=== PATIENT | female | born 1955 | race Caucasian/White ===

== ENCOUNTER → 2023-08-07 09:52 | Outpatient (CLI) | payer MEDICARE, OTHER, SELFPAY ==
[2023-08-07 10:41] LABS: Add Manual Diff / Slide Review NO; Basophils Absolute Auto 200 /uL (0-100); Basophils Percent Auto 4.3 % (0-2); Eosinophils Absolute Auto 600 /uL (0-450); Eosinophils Percent Auto 12.1 % (2-4); Hematocrit 31.5 % (36-46); Hemoglobin 10.3 g/dL (12.0-16.0); Lymphocytes Absolute Auto 1400 /uL (1100-4500); Lymphocytes Percent Auto 27.5 % (25-40); Mean Corpuscular HGB Conc 32.8 % (30-36); Mean Corpuscular Hemoglobin 29.1 PG (26-34); Mean Corpuscular Volume 88.8 fL (80-100); Monocytes Absolute Auto 800 /uL (0-900); Neutrophils Absolute Auto 2100 /uL (1500-7000); Neutrophils Percent Auto 41.1 % (50-75); Platelet Count 541 X10^3/uL (150-400); Red Blood Cell Count 3.55 X10^6/uL (4.0-5.2); Red Cell Distribution Width 15.9 % (11.6-14.8)
[2023-08-07 11:30] LABS: Alanine Aminotransferase 27 IU/L (<35); Albumin 3.9 g/dL (3.5-5.0); Albumin Globulin Ratio 1.2 (1.0-2.8); Alkaline Phosphatase 100 U/L (38-126); Aspartate Aminotransferase 34 IU/L (14-36); BUN Creatinine Ratio 20.2 (6-22); Bilirubin Total 0.5 mg/dL (0.2-1.3); Blood Urea Nitrogen 19 mg/dL (7-17); Calcium 9.3 mg/dL (8.4-10.2); Carbon Dioxide 27 mmol/L (22-32); Chloride 102 mmol/L (98-107); Estimated Glomerular Filt Rate > 60 mL/min (>60); Globulin 3.3 g/dL (1.7-4.1); Glucose 89 mg/dL (80-110); HEMOLYSIS < 15 (0-50); Potassium 4.8 mmol/L (3.4-5.1); Sodium 136 mmol/L (137-145); Total Protein 7.2 g/dL (6.3-8.2)
== END ==
PROVIDERS: Referring Provider Internal Medicine Hematology & Oncology; Visit Provider Internal Medicine Hematology & Oncology
DX: C34.91 Malignant neoplasm of unspecified part of right bronchus or lung (principal)
CPT/HCPCS: 36415; 80053; 85025

== ENCOUNTER → 2023-08-14 08:37 | Outpatient (CLI) | payer MEDICARE, OTHER, SELFPAY ==
[2023-08-14 17:57] LABS: Add Manual Diff / Slide Review NO; Basophils Absolute Auto 200 /uL (0-100); Basophils Percent Auto 2.8 % (0-2); Eosinophils Absolute Auto 900 /uL (0-450); Hematocrit 33.3 % (36-46); Lymphocytes Absolute Auto 1400 /uL (1100-4500); Lymphocytes Percent Auto 23.4 % (25-40); Mean Corpuscular Hemoglobin 29.3 PG (26-34); Mean Corpuscular Volume 88.8 fL (80-100); Monocytes Absolute Auto 900 /uL (0-900); Monocytes Percent Auto 14.9 % (3-14); Neutrophils Absolute Auto 2600 /uL (1500-7000); Neutrophils Percent Auto 43.9 % (50-75); Platelet Count 383 X10^3/uL (150-400); Red Blood Cell Count 3.75 X10^6/uL (4.0-5.2); Red Cell Distribution Width 16.9 % (11.6-14.8); White Blood Cell Count 5.9 X10^3/uL (4.5-11.0)
[2023-08-14 18:15] LABS: Alanine Aminotransferase 37 IU/L (<35); Albumin 4.3 g/dL (3.5-5.0); Albumin Globulin Ratio 1.1 (1.0-2.8); Alkaline Phosphatase 104 U/L (38-126); Aspartate Aminotransferase 46 IU/L (14-36); BUN Creatinine Ratio 19.8 (6-22); Bilirubin Total 0.5 mg/dL (0.2-1.3); Blood Urea Nitrogen 18 mg/dL (7-17); Calcium 9.5 mg/dL (8.4-10.2); Carbon Dioxide 27 mmol/L (22-32); Chloride 104 mmol/L (98-107); Estimated Glomerular Filt Rate > 60 mL/min (>60); Globulin 3.9 g/dL (1.7-4.1); Glucose 90 mg/dL (80-110); HEMOLYSIS 28 (0-50); Potassium 4.3 mmol/L (3.4-5.1); Sodium 137 mmol/L (137-145); Total Protein 8.2 g/dL (6.3-8.2)
== END ==
PROVIDERS: PCP Internal Medicine Hematology & Oncology; Referring Provider Internal Medicine Hematology & Oncology; Visit Provider Internal Medicine Hematology & Oncology
DX: C34.91 Malignant neoplasm of unspecified part of right bronchus or lung (principal)
CPT/HCPCS: 36415; 80053; 85025

== ENCOUNTER → 2023-11-12 14:12 | Outpatient (CLI) | payer MEDICARE, OTHER, SELFPAY ==
--- NOTE | 2023-11-12 14:14 | DI.CT.S_ITS ---
PROCEDURE: CT SOFT TISSUE NECK W CON INDICATIONS: F/U ON TREATMENT / BRONCHUS AND LUNG NEOPLASM TECHNIQUE: After the administration of intravenous contrast, 3.0 mm axial sections acquired from the sella to the aortic arch. Additional oblique axial 3.0 mm sections acquired through the pharynx. 3 mm thick coronal and sagittal reformats were generated. For radiation dose reduction, the following was used: automated exposure control. COMPARISON: Outside Facility, RG, CT SOFT TISSUE NECK WITH CONTRAST, 09/10/2023, 16:41. FINDINGS: Skull Base: The visualized intracranial contents, skull, and orbits are unremarkable in unstable small left parietal benign hemangioma. Visualized paranasal sinuses are clear. Pharynx and Larynx: The nasopharyngeal airway is patent and midline. Parapharyngeal soft tissues including palatine tonsils and base of the tongue are normal. Retropharyngeal space unremarkable. Normal appearance of the false and true vocal cords. Muscles and Fascial Planes: Fascial planes are well maintained. No abscess or mass lesion. Lymph Nodes: Continued decrease in a bilateral cervical lymph nodes size. Index left level 2A node now measures 1.2 x 0.7 cm, previously 1.5 x 1 point 0 cm utilizing similar projections Vasculature: Unremarkable. Submandibular and Parotid Glands: Normal in size and attenuation. Thyroid: Unremarkable. No enlarged or calcified nodules. Bones: No acute fracture. No osteolytic or blastic lesion is evident. Normal bone mineralization. Degenerative disc disease and arthropathy. Lung Apices: Mild biapical pulmonary emphysema IMPRESSION: Positive response to treatment. Continued decrease in size and number of cervical lymph nodes Approved by: Jason Freeman M.D. on 11/12/2023 at 17:47
--- NOTE | 2023-11-12 15:12 | DI.CT.S_ITS ---
PROCEDURE: CT CHEST ABD PEL W CON INDICATIONS: F/U ON TREATMENT / BRONCHUS AND LUNG NEOPLASM TECHNIQUE: After the administration of intravenous contrast, 5 mm thick sections acquired from the lung apices to the symphysis. 5 mm coronal and sagittal reformats were performed, with additional 7 mm MIP reformats through the lungs. For radiation dose reduction, the following was used: automated exposure control, adjustment of mA and/or kV according to patient size. COMPARISON: Outside Facility, RG, CT PET SKULL BASE TO MID THIGH, 09/10/2023, 16:05. Outside Facility, RG, CT CHEST/ABD/PEL W/CONTRAST, 09/10/2023, 16:32. FINDINGS: Image quality: Diagnostic Lungs and pleura: Scattered scarring and atelectasis. No new or enlarging pulmonary nodules. Small nodules, for example the left lung apex image 3/64, are unchanged. No pleural effusions. Mediastinum, heart, and esophagus: Soft tissue thickening and small calcifications again seen at the right hilum, likely representing post treatment changes, overall stable compared to 09/10/2023. Soft tissue thickening throughout the mediastinum without discrete measurable mass also again seen. Heart size is within normal limits. Chest wall and thyroid: Unremarkable. No significant lymphadenopathy in the axilla. Previously hypermetabolic lymph nodes are slightly less conspicuous. Liver: Unremarkable. No suspicious solid lesion Gallbladder and biliary system: Unremarkable, nondilated. Pancreas: No ductal dilation Spleen: Nonenlarged Adrenals: No discrete nodules Kidneys: Multifocal scarring. Scattered cysts. No solid renal mass or hydronephrosis Vessels and lymph nodes: The main portal vein is patent. Areas of calcified and noncalcified plaque again seen in the abdominal aorta, possibly with an ulceration in the infrarenal region. No pathologic lymph nodes by size criteria. Bowel and peritoneum: Moderate distention of the stomach without small bowel obstruction. Moderate fecal loading is also seen. No pathologic lymph nodes by size criteria. Body wall: Moderate right inguinal hernia is present. The previously hypermetabolic inguinal lymph nodes are less conspicuous. Pelvis: Bladder is unremarkable. Reproductive organs are unremarkable on limited CT evaluation Bones: There are degenerative changes. L4 vertebral augmentation. IMPRESSION: Post treatment changes of the right hilum, with soft tissue thickening and calcifications similar to prior. Small nodular regions of the lungs are also similar to prior in the short interval comparison from 09/10/2023. No active metastases identified in the abdomen/pelvis. Other findings as above. Dictated by: Justin Elliott M.D. on 11/12/2023 at 16:18 Approved by: Justin Elliott M.D. on 11/12/2023 at 16:31
== END ==
LOC: CT 14:12
PROVIDERS: PCP Internal Medicine Hematology & Oncology; Referring Provider Internal Medicine Hematology & Oncology; Visit Provider Internal Medicine Hematology & Oncology
DX: C34.01 Malignant neoplasm of right main bronchus; R91.8 Other nonspecific abnormal finding of lung field; R59.0 Localized enlarged lymph nodes; K40.90 Unilateral inguinal hernia, without obstruction or gangrene, not specified as recurrent
CPT/HCPCS: 70491; 71260; 74177; Q9967

== ENCOUNTER → 2024-01-14 10:31 | Outpatient (CLI) | payer MEDICARE, OTHER, SELFPAY ==
--- NOTE | 2024-01-14 10:35 | DI.CT.S_ITS ---
PROCEDURE: CT CHEST ABD PEL W CON INDICATIONS: MALIG NAN BRONCUS AND LUNG TECHNIQUE: After the administration of intravenous contrast, 5 mm thick sections acquired from the lung apices to the symphysis. 5 mm coronal and sagittal reformats were performed, with additional 7 mm MIP reformats through the lungs. For radiation dose reduction, the following was used: automated exposure control, adjustment of mA and/or kV according to patient size. COMPARISON: Outside Facility, CT, CT CHEST ABD PEL W CON, 09/10/2023, 16:32. Outside Facility, RG, CT PET SKULL BASE TO MID THIGH, 09/10/2023, 16:05. [facility], CT, CT CHEST ABD PEL W CON, 11/12/2023, 15:15. FINDINGS: Image quality: Excellent. CHEST: Lower Neck: No enlarged lymph nodes. Thyroid: No thyroid nodules which require sonographic follow up, per consensus guidelines. Axillae: No enlarged lymph nodes. Chest Wall: Unremarkable. Lungs and Pleura: No pneumothorax or pleural effusions. Stable small scar-like pulmonary nodule, posterior medial left upper lobe, previous image 64/3 and current image 82/3. Stable scar-like nodularity in the posterior left upper lobe, most recent previous image 80 of series 3 and current image 97 of series 3. No new or increasing pulmonary nodules noted. Heart: Heart size is normal. No pericardial effusion. Thoracic Vessels: The aorta and pulmonary arteries demonstrate normal size. Mediastinum and Lee Ann: Again noted is a partially calcified soft tissue lesion immediately subjacent to the right inferior pulmonary vein. It measures approximately 3.0 x 1.8 x 1.1 cm. Reference current coronal image 32 of series 4 and axial image 40 of series 2. On the most recent previous images it measured 3.3 x 1.6 x 0.9 cm. It appears to have slightly increased in size. Reference most recent previous coronal image 32 of series 4 and axial image 37 of series 2. Esophagus: No wall thickening. No hiatal hernia. ABDOMEN: Liver: No solid mass. Gallbladder: No radiopaque gallstones or wall thickening. Biliary ducts: No biliary dilation. Pancreas: No ductal dilation. Spleen: Size is within normal limits. Adrenal Glands: No adrenal nodules. Kidneys and Ureters: Multiple areas of left renal cortical volume loss consistent with remote insults. No renal mass. No hydronephrosis. Stomach and Bowel: Normal colonic caliber, without significant wall thickening. Peritoneum: No abnormal intraperitoneal fluid. No free air. Ventral Wall: No significant ventral hernia. Abdominal Nodes: No retroperitoneal or mesenteric adenopathy by size criteria. Vessels: Aorta and inferior vena cava are normal in size. PELVIS: Pelvic Organs: Unremarkable. Bladder: No bladder wall thickening, accounting for underdistention. Pelvic Nodes: No enlarged lymph nodes. Miscellaneous: Fat containing right inguinal hernia. No inguinal adenopathy. In Bones: No aggressive osseous abnormality. IMPRESSION: 1. The partially calcified lesion that is in close proximity to the left inferior pulmonary vein may potentially have minimally increased in size since the most recent previous study. 2. No other findings which may potentially represent progression of metastatic disease in the chest, abdomen, and pelvis. 3. Stable scar-like nodularity in the lungs. 4. Old treated L4 compression. Dictated by: Herman Davila M.D. on 01/14/2024 at 13:34 Approved by: Herman Davila M.D. on 01/14/2024 at 13:57
--- NOTE | 2024-01-14 10:35 | DI.CT.S_ITS ---
PROCEDURE: CT SOFT TISSUE NECK W CON INDICATIONS: MALIG NAN BRONCUS AND LUNG TECHNIQUE: After the administration of intravenous contrast, 3.0 mm axial sections acquired from the sella to the aortic arch. Additional oblique axial 3.0 mm sections acquired through the pharynx. 3 mm thick coronal and sagittal reformats were generated. For radiation dose reduction, the following was used: automated exposure control. COMPARISON: [facility], CT, CT CHEST ABD PEL W CON, 01/14/2024, 11:54. Outside Facility, RG, CT PET SKULL BASE TO MID THIGH, 09/10/2023, 16:05. Outside Facility, CT, CT SOFT TISSUE NECK W CON, 09/10/2023, 16:41. Outside Facility, RG, CT SOFT TISSUE NECK WITH CONTRAST, 09/10/2023, 16:41. [facility], CT, CT SOFT TISSUE NECK W CON, 11/12/2023, 15:15. FINDINGS: Image quality: There is artifact associated with the metallic hardware. Artifact from the metallic hardware is reduced by metal reconstruction algorithm. Lymph nodes: There is a prominent left level 2A lymph node seen on series 2, image 36 measuring 13 x 8 mm. Borderline prominent lymph nodes can be seen elsewhere within the neck. Vessels: Visualized vasculature appears patent. Neck spaces: The oropharynx, nasopharynx, and pharynx demonstrate no mucosal lesions. The vocal cords, false vocal cords, pyriform sinuses, epiglottis, vallecula, and tongue base all appear normal. Extramucosal spaces appear unremarkable. Glands: The parotid and submandibular glands appear normal. Thyroid gland demonstrates no significant abnormality. Miscellaneous: Visualized brain and orbits appear normal. Lung apices appear clear. Superficial soft tissues appear normal. Bones: No suspicious bony lesions. Visualized sinuses and mastoids appear unremarkable. [id number] cervical spine degenerative change can be seen. IMPRESSION: The index left level 2A lymph node is minimally more prominent on the current study than on the prior, measuring 13 x 8 mm on the current exam, compared to 12 x 7 mm on the prior. Borderline prominent lymph nodes can be seen elsewhere within the neck. No masses are seen within the neck. Dictated by: Jeff Hernández M.D. on 01/14/2024 at 12:05 Approved by: Jeff Hernández M.D. on 01/14/2024 at 12:09
== END ==
PROVIDERS: PCP Internal Medicine Hematology & Oncology; Referring Provider Nurse Practitioner; Visit Provider Nurse Practitioner
DX: C34.90 Malignant neoplasm of unspecified part of unspecified bronchus or lung; R59.0 Localized enlarged lymph nodes
CPT/HCPCS: 70491; 71260; 74177; Q9967

== ENCOUNTER → 2024-02-27 08:47 | Outpatient (CLI) | payer MEDICARE, OTHER, SELFPAY ==
--- NOTE | 2024-02-27 08:50 | DI.CT.S_ITS ---
PROCEDURE: CT CHEST W CON INDICATIONS: lung cancer TECHNIQUE: After the administration of intravenous contrast, 5 mm thick sections acquired from the pulmonary apices to the posterior costophrenic angles. 1 mm axial lung, 5 mm thick coronal and sagittal reformats and 7 mm axial MIP were acquired. For radiation dose reduction, the following was used: automated exposure control, adjustment of mA and/or kV according to patient size. COMPARISON: [facility], CT, CT CHEST ABD PEL W CON, 01/14/2024, 11:54. FINDINGS: Image quality: Diagnostic. Lower Neck: No enlarged lymph nodes. Thyroid: No thyroid nodules which require sonographic follow up, per consensus guidelines. Axillae: No enlarged lymph nodes. Chest Wall: Unremarkable. Bones: Unremarkable. Lungs and Pleura: No pneumothorax or pleural effusions. Stable tiny lung nodules and areas of nodular scarring in both lungs. This includes stable 5 millimeter left apical stellate nodule, stable 3 millimeter right upper lobe subpleural nodule and stable left lower lobe 4 millimeters subpleural nodule. No new or suspicious lung nodules. Heart: Heart size is normal. No pericardial effusion. Thoracic Vessels: Atherosclerotic changes aorta. Mediastinum and Lee Ann: Stable partially calcified enlarged right hilar lymph node adjacent to the inferior pulmonary vein 1.6 x 0.8 centimeters unchanged. Esophagus: No wall thickening. No hiatal hernia. Upper Abdomen: Visualized upper abdomen solid organs and bowel loops appear normal. IMPRESSION: Stable appearance of the chest without evidence of disease progression or progressive metastases. Dictated by: Rip Vieira M.D. on 02/27/2024 at 11:35 Approved by: Rip Vieira M.D. on 02/27/2024 at 11:44
== END ==
PROVIDERS: PCP Internal Medicine Hematology & Oncology; Referring Provider Nurse Practitioner; Visit Provider Nurse Practitioner
DX: C34.91 Malignant neoplasm of unspecified part of right bronchus or lung (principal)
CPT/HCPCS: 71260; Q9967

== ENCOUNTER → 2024-04-08 13:59 | Outpatient (CLI) | payer MEDICARE, OTHER, SELFPAY ==
--- NOTE | 2024-04-08 14:03 | DI.CT.S_ITS ---
PROCEDURE: CT CHEST ABD PEL W CON INDICATIONS: Malignant neoplasm of bronchus and lung TECHNIQUE: After the administration of intravenous contrast, 5 mm thick sections acquired from the lung apices to the symphysis. 5 mm coronal and sagittal reformats were performed, with additional 7 mm MIP reformats through the lungs. For radiation dose reduction, the following was used: automated exposure control, adjustment of mA and/or kV according to patient size. COMPARISON: [facility], CT, CT CHEST ABD PEL W CON, 01/14/2024, 11:54. [facility], CT, CT CHEST ABD PEL W CON, 11/12/2023, 15:15. FINDINGS: Image quality: Excellent. CHEST: Lower Neck: No enlarged lymph nodes. Thyroid: No thyroid nodules which require sonographic follow up, per consensus guidelines. Axillae: No enlarged lymph nodes. Chest Wall: Unremarkable. Lungs and Pleura: No pneumothorax or pleural effusions. No consolidation or suspicious nodules. Previously identified small foci of subpleural upper lobe lung parenchymal scarring and 2 posterior sub 5 mm subpleural nodules on the left are again seen. Post radiation fibrotic change centered on the lower right hilum is again noted. No growing hilar or mediastinal mass is found. Heart: Heart size is normal. No pericardial effusion. Thoracic Vessels: The aorta and pulmonary arteries demonstrate normal size. Mediastinum and Lee Ann: No enlarged lymph nodes. Esophagus: No wall thickening. No hiatal hernia. ABDOMEN: Liver: No solid mass. Gallbladder: No radiopaque gallstones or wall thickening. Biliary ducts: No biliary dilation. Pancreas: No ductal dilation. Spleen: Size is within normal limits. Adrenal Glands: No adrenal nodules. Kidneys and Ureters: No hydronephrosis. No solid mass. No complex renal cystic lesion which requires follow up. Stomach and Bowel: Normal colonic caliber, without significant wall thickening. Peritoneum: No abnormal intraperitoneal fluid. No free air. Ventral Wall: No significant ventral hernia. Abdominal Nodes: No retroperitoneal or mesenteric adenopathy by size criteria. Vessels: Aorta and inferior vena cava are normal in size. PELVIS: Pelvic Organs: Unremarkable. Bladder: No bladder wall thickening, accounting for underdistention. Pelvic Nodes: No enlarged lymph nodes. Miscellaneous: No inguinal hernias are seen. Bones: No aggressive osseous abnormality. IMPRESSION: Post radiation fibrotic change centered on the lower right hilum, with residual hilar scarring and punctate calcifications in that area. No change that would suggest recurrent neoplastic is found, no local or distant metastatic disease is seen. Stable appearance of several small areas of subpleural lung parenchymal scarring and posterior left lower lobe subpleural sub 5 mm nodules. These may reflect old granulomatous disease. Dictated by: Adrian Vigil M.D. on 04/09/2024 at 12:27 Approved by: Adrian Vigil M.D. on 04/09/2024 at 12:36
--- NOTE | 2024-04-08 14:03 | DI.CT.S_ITS ---
PROCEDURE: CT SOFT TISSUE NECK W CON INDICATIONS: Malignant neoplasm of bronchus and lung TECHNIQUE: After the administration of intravenous contrast, 3.0 mm axial sections acquired from the sella to the aortic arch. Additional oblique axial 3.0 mm sections acquired through the pharynx. 3 mm thick coronal and sagittal reformats were generated. For radiation dose reduction, the following was used: automated exposure control. COMPARISON: [facility], CT, CT SOFT TISSUE NECK W CON, 01/14/2024, 11:54. [facility], CT, CT CHEST ABD PEL W CON, 04/08/2024, 15:28. Outside Facility, RG, CT PET SKULL BASE TO MID THIGH, 09/10/2023, 16:05. Outside Facility, RG, CT SOFT TISSUE NECK WITH CONTRAST, 09/10/2023, 16:41. Outside Facility, CT, CT SOFT TISSUE NECK W CON, 09/10/2023, 16:41. [facility], CT, CT SOFT TISSUE NECK W CON, 11/12/2023, 15:15. FINDINGS: Image quality: Excellent. Lymph nodes: Within the left neck at level 2A, there is a prominent lymph node seen, as on series 2, image 34, measuring 11 by 8 mm, decreased in size compared to the prior when it measured 13 x 8 mm.. Borderline prominent cervical lymph nodes can be seen on both sides. Vessels: Visualized vasculature appears patent. Neck spaces: The oropharynx, nasopharynx, and pharynx demonstrate no mucosal lesions. There is hyperdensity seen adjacent to the left focal fold, as on series 2, image 43. The pyriform sinuses, epiglottis, vallecula, and tongue base all appear normal. Extramucosal spaces appear unremarkable. Glands: The parotid and submandibular glands appear normal. Thyroid gland demonstrates no significant abnormality. Miscellaneous: Visualized brain and orbits appear normal. Lung apices appear clear. Superficial soft tissues appear normal. Bones: No suspicious bony lesions. Visualized sinuses and mastoids appear unremarkable. Moderate cervical spine degenerative change can be seen. IMPRESSION: Slight interval decrease in size of the index left level 2A lymph node, now measuring 11 x 8 mm. Borderline prominent lymph nodes can be seen elsewhere within the neck. There is interval development of hyperdensity adjacent to the left vocal cord. Please correlate with surgical history since the prior CT. Dictated by: Jeff Hernández M.D. on 04/09/2024 at 9:44 Approved by: Jeff Hernández M.D. on 04/09/2024 at 9:49
[2024-04-08 14:52] LABS: Estimated Glomerular Filt Rate > 60 mL/min (>60)
== END ==
PROVIDERS: Radiology Diagnostic Radiology; PCP Internal Medicine Hematology & Oncology; Referring Provider Internal Medicine Hematology & Oncology; Visit Provider Internal Medicine Hematology & Oncology
DX: C34.80 Malignant neoplasm of overlapping sites of unspecified bronchus and lung; M47.812 Spondylosis without myelopathy or radiculopathy, cervical region; R91.8 Other nonspecific abnormal finding of lung field; J98.4 Other disorders of lung
CPT/HCPCS: 36415; 70491; 71260; 74177; 82565; Q9967

== ENCOUNTER → 2024-06-24 10:36 | Outpatient (CLI) | payer MEDICARE, OTHER, SELFPAY ==
--- NOTE | 2024-06-24 10:38 | DI.CT.S_ITS ---
PROCEDURE: CT CHEST ABD PEL W CON INDICATIONS: LUNG CANCER TECHNIQUE: After the administration of intravenous contrast, 5 mm thick sections acquired from the lung apices to the symphysis. 5 mm coronal and sagittal reformats were performed, with additional 7 mm MIP reformats through the lungs. For radiation dose reduction, the following was used: automated exposure control, adjustment of mA and/or kV according to patient size. COMPARISON: [facility], CT, CT CHEST ABD PEL W CON, 04/08/2024, 15:28. FINDINGS: Image quality: Excellent. CHEST: Lower Neck: No enlarged lymph nodes. Thyroid: No thyroid nodules which require sonographic follow up, per consensus guidelines. Axillae: No enlarged lymph nodes. Chest Wall: Unremarkable. Lungs and Pleura: No pneumothorax or pleural effusions. No consolidation or suspicious nodules. Again noted are stable appearance of small full side of subpleural upper lobe parenchymal scarring and posterior sub 5 mm subpleural nodules all unchanged in size and appearance from prior study, series 3 images 52, 149, 176 , 180 and 191. Again noted are post radiation fibrotic changes centered on the right lower hilum not significantly changed in overall appearance compared to 04/08/2024 study. Heart: Heart size is normal. No pericardial effusion. Thoracic Vessels: The aorta and pulmonary arteries demonstrate normal size. Mediastinum and Lee Ann: No enlarged lymph nodes. Esophagus: No wall thickening. Small hiatal hernia. ABDOMEN: Liver: No solid mass. Gallbladder: No radiopaque gallstones or wall thickening. Biliary ducts: No biliary dilation. Pancreas: No ductal dilation. Spleen: Size is within normal limits. Adrenal Glands: No adrenal nodules. Kidneys and Ureters: No hydronephrosis. No solid mass. Simple appearing bilateral renal cysts unchanged from prior study. No complex renal cystic lesion which requires follow up. Stomach and Bowel: There is no bowel obstruction. No gastric or small bowel wall thickening. Moderate fecal stasis in the colon is seen. No abscess collection. Peritoneum: No abnormal intraperitoneal fluid. No free air. Ventral Wall: No significant ventral hernia. Abdominal Nodes: No retroperitoneal or mesenteric adenopathy by size criteria. Vessels: Aorta and inferior vena cava are normal in size. PELVIS: Pelvic Organs: Unremarkable. Bladder: No bladder wall thickening, accounting for underdistention. Pelvic Nodes: No enlarged lymph nodes. Miscellaneous: Large right inguinal hernia is again seen containing fat only unchanged from prior study. Bones: No aggressive osseous abnormality. Chronic compression deformity at L4 level with prior vertebral plasty is again seen. No new vertebral body compression fracture. IMPRESSION: 1. Post radiation fibrotic changes centered on the right lower hilum and residual right hilar scarring with punctate calcifications unchanged from previous study. No evidence of local recurrence. 2. Stable tiny sub 5 mm nodular densities and subpleural lung parenchymal scarring remain unchanged from prior studies and are suggestive of chronic benign process. 3. No evidence of metastatic disease in the abdomen or pelvis. 4. Chronic findings as above, unchanged from prior studies. Dictated by: Miguel Schwarz M.D. on 06/24/2024 at 20:08 Approved by: Miguel Schwarz M.D. on 06/24/2024 at 22:06
--- NOTE | 2024-06-24 10:39 | DI.CT.S_ITS ---
PROCEDURE: CT SOFT TISSUE NECK W CON INDICATIONS: LUNG CANCER TECHNIQUE: After the administration of intravenous contrast, 3.0 mm axial sections acquired from the sella to the aortic arch. Additional oblique axial 3.0 mm sections acquired through the pharynx. 3 mm thick coronal and sagittal reformats were generated. For radiation dose reduction, the following was used: automated exposure control. COMPARISON: [facility], CT, CT SOFT TISSUE NECK W CON, 04/08/2024, 15:28. [facility], CT, CT CHEST ABD PEL W CON, 06/24/2024, 11:55. [facility], CT, CT SOFT TISSUE NECK W CON, 01/14/2024, 11:54. [facility], CT, CT SOFT TISSUE NECK W CON, 11/12/2023, 15:15. Outside Facility, CT, CT SOFT TISSUE NECK W CON, 09/10/2023, 16:41. FINDINGS: Image quality: There is streak artifact seen through the level of the shoulders. There is artifact associated with the metallic hardware. Lymph nodes: There is a borderline prominent left level 2A lymph node measuring 11 x 8 mm, which is unchanged compared to the prior examination. No enlarged lymph nodes are seen throughout, including within the supraclavicular regions Vessels: Visualized vasculature appears patent. Atherosclerotic calcification is noted. Neck spaces: The oropharynx, nasopharynx, and pharynx demonstrate no mucosal lesions. There is again seen a hyperdense focus adjacent to the left focal cord, as seen on series 2, image 50, which is stable compared to the prior examination. The false vocal cords, pyriform sinuses, epiglottis, vallecula, and tongue base all appear normal. Extramucosal spaces appear unremarkable. Glands: The parotid and submandibular glands appear normal. Thyroid gland demonstrates no significant abnormality. Miscellaneous: Visualized brain and orbits appear normal. Lung apices appear clear. Superficial soft tissues appear normal. Bones: No suspicious bony lesions. Visualized sinuses and mastoids appear unremarkable. Moderate lower cervical spine degenerative change can be seen. IMPRESSION: Stable borderline prominent left level 2A lymph node, again measuring 11 x 8 mm. No soft tissue masses are seen. Stable hyperdense focus again seen adjacent to the left vocal cord. Postprocedural change is suspected. Please correlate with known patient history. Additional findings: Moderate lower cervical spine degenerative change Dictated by: Jani HayesD. on 06/24/2024 at 13:54 Approved by: Jeff Hernández M.D. on 06/24/2024 at 13:57
== END ==
PROVIDERS: PCP Internal Medicine Hematology & Oncology; Referring Provider Internal Medicine Hematology & Oncology; Visit Provider Internal Medicine Hematology & Oncology
DX: C79.51 Secondary malignant neoplasm of bone (principal); C34.90 Malignant neoplasm of unspecified part of unspecified bronchus or lung
CPT/HCPCS: 70491; 71260; 74177; Q9967

== ENCOUNTER → 2024-09-16 10:19 | Outpatient (CLI) | payer MEDICARE, OTHER, SELFPAY ==
--- NOTE | 2024-09-16 | DI.CT.S_ITS ---
PROCEDURE: CT SOFT TISSUE NECK W CON INDICATIONS: MALIG NAN BRONCUS AND LUNG TECHNIQUE: After the administration of intravenous contrast, 3.0 mm axial sections acquired from the sella to the aortic arch. Additional oblique axial 3.0 mm sections acquired through the pharynx. 3 mm thick coronal and sagittal reformats were generated. For radiation dose reduction, the following was used: automated exposure control. COMPARISON: [facility], CT, CT SOFT TISSUE NECK W CON, 04/08/2024, 15:28. [facility], CT, CT SOFT TISSUE NECK W CON, 06/24/2024, 11:55. FINDINGS: Image quality: Excellent. Lymph nodes: Stable 1.1 centimeter short axis left level 2A neck lymph node.. Vessels: Visualized vasculature appears patent. Neck spaces: The oropharynx, nasopharynx, and pharynx demonstrate no mucosal lesions. Hyperdense lesion in the left true vocal cord is stable in size and contour. The false vocal cords, pyriform sinuses, epiglottis, vallecula, and tongue base all appear normal. Extramucosal spaces appear unremarkable. Glands: The parotid and submandibular glands appear normal. Thyroid gland is normal. Miscellaneous: Visualized brain and orbits appear normal. Lung apices appear clear. Superficial soft tissues appear normal. Bones: No suspicious bony lesions. Spine degenerative disc disease and facet arthropathy.Visualized sinuses and mastoids appear unremarkable. IMPRESSION: Stable examination compared to June 24, 2024 and April 08, 2024. Stable 1.1 centimeter left level 2A neck lymphadenopathy. No new neck lymphadenopathy based on size criteria. No mucosal based mass. Dictated by: Maame Scott MD, PhD on 09/16/2024 at 11:56 Approved by: Maame Scott MD, PhD on 09/16/2024 at 12:00
--- NOTE | 2024-09-16 | DI.CT.S_ITS ---
PROCEDURE: CT CHEST ABD PEL W CON INDICATIONS: MALIG NAN BRONCUS AND LUNG TECHNIQUE: After the administration of intravenous contrast, 5 mm thick sections acquired from the lung apices to the symphysis. 5 mm coronal and sagittal reformats were performed, with additional 7 mm MIP reformats through the lungs. For radiation dose reduction, the following was used: automated exposure control, adjustment of mA and/or kV according to patient size. COMPARISON: [facility], CT, CT CHEST ABD PEL W CON, 06/24/2024, 11:55. [facility], CT, CT CHEST ABD PEL W CON, 04/08/2024, 15:28. [facility], CT, CT CHEST W CON, 02/27/2024, 8:51. [facility], CT, CT CHEST ABD PEL W CON, 01/14/2024, 11:54. FINDINGS: Image quality: Excellent. CHEST: Lower Neck: No enlarged lymph nodes. Thyroid: No thyroid nodules which require sonographic follow up, per consensus guidelines. Axillae: No enlarged lymph nodes. Chest Wall: Unremarkable. Lungs and Pleura: No pneumothorax or pleural effusions. No lung consolidation. Stable biapical pleural-parenchymal scarring. Stable 5 millimeter left apically subpleural nodules. No new lung nodules. 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 Heart: Heart size is normal. No pericardial effusion. Thoracic Vessels: The aorta and pulmonary arteries demonstrate normal size. Mediastinum and [place]: No enlarged lymph nodes. Esophagus: No wall thickening. No hiatal hernia. ABDOMEN: Liver: No solid mass. Gallbladder: No radiopaque gallstones or wall thickening. Biliary ducts: No biliary dilation. Pancreas: No ductal dilation. Spleen: Size is within normal limits. Adrenal Glands: No adrenal nodules. Kidneys and Ureters: No hydronephrosis. No solid mass. No complex renal cystic lesion which requires follow up. Stomach and Bowel: Normal colonic caliber, without significant wall thickening. Peritoneum: No abnormal intraperitoneal fluid. No free air. Ventral Wall: No significant ventral hernia. Abdominal Nodes: No retroperitoneal or mesenteric adenopathy by size criteria. Vessels: Aorta and inferior vena cava are normal in size. Scattered atherosclerotic calcifications involving the abdominal and pelvic vasculature. PELVIS: Pelvic Organs: Unremarkable. Bladder: No bladder wall thickening, accounting for underdistention. Pelvic Nodes: No enlarged lymph nodes. Miscellaneous: Large fat containing right inguinal hernia. Bones: No aggressive osseous abnormality. Spine degenerative disc disease and facet arthropathy. Stable chronic L4 compression fracture with vertebroplasty changes. IMPRESSION: Stable examination compared to June 24, 2024 and April 08, 2024. No evidence of recurrent or residual lung carcinoma. Stable left upper lobe 5 millimeters subpleural nodules. No new lung nodules. No evidence of metastatic disease involving the abdomen or pelvis. No lymphadenopathy based on size criteria. Dictated by: Maame Scott MD, PhD on 09/16/2024 at 12:24 Approved by: Maame Scott MD, PhD on 09/16/2024 at 12:32
[2024-09-16 10:45] LABS: Estimated Glomerular Filt Rate > 60 mL/min (>60)
== END ==
LOC: CT 10:22
PROVIDERS: PCP Internal Medicine Hematology & Oncology; Referring Provider Internal Medicine Hematology & Oncology; Visit Provider Internal Medicine Hematology & Oncology
DX: C34.91 Malignant neoplasm of unspecified part of right bronchus or lung (principal); R59.0 Localized enlarged lymph nodes; R91.8 Other nonspecific abnormal finding of lung field; K40.90 Unilateral inguinal hernia, without obstruction or gangrene, not specified as recurrent; Z87.891 Personal history of nicotine dependence
CPT/HCPCS: 36415; 70491; 71260; 74177; 82565; Q9967

== ENCOUNTER → 2024-12-09 07:32 | Outpatient (CLI) | payer MEDICARE, OTHER, SELFPAY ==
--- NOTE | 2024-12-09 07:34 | DI.CT.S_ITS ---
PROCEDURE: CT SOFT TISSUE NECK W CON INDICATIONS: malignant neoplasm of the bronchus and/or lung. TECHNIQUE: After the administration of intravenous contrast, 3.0 mm axial sections acquired from the sella to the aortic arch. Additional oblique axial 3.0 mm sections acquired through the pharynx. 3 mm thick coronal and sagittal reformats were generated. For radiation dose reduction, the following was used: automated exposure control. COMPARISON: [facility], CT, CT SOFT TISSUE NECK W CON, 11/12/2023, 15:15. [facility], CT, CT SOFT TISSUE NECK W CON, 01/14/2024, 11:54. [facility], CT, CT SOFT TISSUE NECK W CON, 04/08/2024, 15:28. [facility], CT, CT SOFT TISSUE NECK W CON, 09/16/2024, 11:16. [facility], CT, CT SOFT TISSUE NECK W CON, 06/24/2024, 11:55. FINDINGS: Image quality: Excellent. Lymph nodes: No enlarged lymph nodes seen throughout the neck. Prominent bilateral level 2A neck lymph nodes which do not meet pathologic size criteria. Previously enlarged left level 2A neck lymph node is decreased in size measuring 0.8 centimeters in short axis in the current study (1.1 centimeter previously). Vessels: Visualized vasculature appears patent. Neck spaces: The oropharynx, nasopharynx, and pharynx demonstrate no mucosal lesions. Small partially calcified lesion involving the left true vocal cord is stable. The right vocal cord, false vocal cords, pyriform sinuses, epiglottis, vallecula, and tongue base all appear normal. Extramucosal spaces appear unremarkable. Glands: The parotid and submandibular glands appear normal. Thyroid gland is normal. Miscellaneous: Visualized brain and orbits appear normal. Lung apices appear clear. Superficial soft tissues appear normal. Mild mucosal thickening in the right maxillary sinus. Bones: No suspicious bony lesions. Spine degenerative disc disease and facet arthropathy. Visualized sinuses and mastoids appear unremarkable. IMPRESSION: No lymphadenopathy based on size criteria. Left 2A lymph node is decreased in size compared to September 16, 2024 measuring 0.8 centimeters in short axis. Otherwise, stable examination with no current CT evidence of metastatic disease. No mucosal-based mass. Dictated by: Maame Scott MD, PhD on 12/09/2024 at 10:32 Approved by: Maame Scott MD, PhD on 12/09/2024 at 10:40
--- NOTE | 2024-12-09 09:01 | DI.CT.S_ITS ---
PROCEDURE: CT CHEST ABD PEL W CON INDICATIONS: malignant neoplasm TECHNIQUE: After the administration of intravenous contrast, 5 mm thick sections acquired from the lung apices to the symphysis. 5 mm coronal and sagittal reformats were performed, with additional 7 mm MIP reformats through the lungs. For radiation dose reduction, the following was used: automated exposure control, adjustment of mA and/or kV according to patient size. COMPARISON: Outside Facility, CT, CT CHEST ABD PEL W CON, 09/10/2023, 16:32. [facility], CT, CT CHEST ABD PEL W CON, 09/16/2024, 11:16. [facility], CT, CT CHEST ABD PEL W CON, 06/24/2024, 11:55. [facility], CT, CT CHEST ABD PEL W CON, 04/08/2024, 15:28. [facility], CT, CT CHEST ABD PEL W CON, 01/14/2024, 11:54. [facility], CT, CT CHEST ABD PEL W CON, 11/12/2023, 15:15. [facility], CT CHEST/ABD/PEL W/CONTRAST, 09/10/2023, 16:32. [facility], CT PET SKULL BASE TO MID THIGH, 09/10/2023, 16:05. FINDINGS: Image quality: Excellent. CHEST: Lower Neck: No enlarged lymph nodes. Thyroid: No thyroid nodules which require sonographic follow up, per consensus guidelines. Axillae: No enlarged lymph nodes. Chest Wall: Unremarkable. Lungs and Pleura: No pneumothorax or pleural effusions. No consolidation or suspicious nodules. Stable right infrahilar lung post radiation fibrosis and calcifications Stable biapical pleural-parenchymal scarring. Small subpleural nodules in the apex of the left lung are stable. No new lung nodules. Heart: Heart size is normal. No pericardial effusion. Thoracic Vessels: The aorta and pulmonary arteries demonstrate normal size. Mediastinum and [place]: No enlarged lymph nodes. Esophagus: No wall thickening. No hiatal hernia. ABDOMEN: Liver: No solid mass. Gallbladder: No radiopaque gallstones or wall thickening. Biliary ducts: No biliary dilation. Pancreas: No ductal dilation. Spleen: Size is within normal limits. Adrenal Glands: No adrenal nodules. Kidneys and Ureters: Stable chronic left renal infarcts. No hydronephrosis. No solid mass. No complex renal cystic lesion which requires follow up. Stomach and Bowel: Normal colonic caliber, without significant wall thickening. Peritoneum: No abnormal intraperitoneal fluid. No free air. Ventral Wall: No significant ventral hernia. Abdominal Nodes: No retroperitoneal or mesenteric adenopathy by size criteria. Vessels: Aorta and inferior vena cava are normal in size. Scattered atherosclerotic calcifications involving the abdominal and pelvic vasculature. PELVIS: Pelvic Organs: Unremarkable. Bladder: No bladder wall thickening, accounting for underdistention. Pelvic Nodes: No enlarged lymph nodes. Miscellaneous: Stable large left inguinal hernia which contains unremarkable appearing fat. Small left inguinal hernia which contains unremarkable appearing fat Bones: No aggressive osseous abnormality. 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 Spine degenerative disc disease and facet arthropathy. Stable chronic L4 compression fracture with vertebroplasty changes. IMPRESSION: Stable examination compared to June 24, 2024, April 08, 2024 and September 16, 2024. No evidence of recurrent or residual lung carcinoma. No evidence of abdominal or metastatic disease. Dictated by: Maame Scott MD, PhD on 12/09/2024 at 10:40 Approved by: Maame Scott MD, PhD on 12/09/2024 at 10:50
== END ==
LOC: CT 07:33
PROVIDERS: PCP Internal Medicine Hematology & Oncology; Referring Provider Internal Medicine Hematology & Oncology; Visit Provider Internal Medicine Hematology & Oncology
DX: C34.91 Malignant neoplasm of unspecified part of right bronchus or lung (principal); K40.90 Unilateral inguinal hernia, without obstruction or gangrene, not specified as recurrent; M19.011 Primary osteoarthritis, right shoulder; M19.012 Primary osteoarthritis, left shoulder; M48.56XA Collapsed vertebra, not elsewhere classified, lumbar region, initial encounter for fracture
CPT/HCPCS: 70491; 71260; 74177; Q9967

== ENCOUNTER → 2025-03-03 08:18 | Outpatient (CLI) | payer MEDICARE, OTHER, SELFPAY ==
--- NOTE | 2025-03-03 08:23 | DI.CT.S_ITS ---
PROCEDURE: CT CHEST ABD PEL W CON INDICATIONS: lung cancer TECHNIQUE: After the administration of intravenous contrast, 5 mm thick sections acquired from the lung apices to the symphysis. 5 mm coronal and sagittal reformats were performed, with additional 7 mm MIP reformats through the lungs. For radiation dose reduction, the following was used: automated exposure control, adjustment of mA and/or kV according to patient size. COMPARISON: [facility], CT, CT CHEST ABD PEL W CON, 12/09/2024, 8:46. 04/08/2024 FINDINGS: Image quality: Diagnostic Lungs and pleura: Right lower lung scarring and fibrotic changes near the hilum, similar. There is similar degree of architectural distortion. No airspace consolidation or pleural effusions. Mild scattered atelectasis also present. No new or enlarging pulmonary nodules. Mild background apex emphysema. Other small nodules are stable. Mediastinum, heart, and esophagus: Nodular tissue with calcifications at the right hilum, measuring about 1.7 cm, previously 1.6 cm in March 2024 Another prominent right hilar lymph nodes also again seen. No other enlarged lymph nodes by size criteria. Unremarkable CT appearance of the esophagus. Overall normal heart size. Chest wall and thyroid: Unremarkable thyroid. A mildly prominent left supraclavicular lymph node measures 0.7 cm in short axis, slightly more conspicuous than prior. Liver: Unremarkable Gallbladder and biliary system: Unremarkable, nondilated Pancreas: No ductal dilation Spleen: Nonenlarged Adrenals: No discrete nodules Kidneys: No solid renal mass. Multifocal left cortical scarring. Left anterior renal cysts. No hydronephrosis. Vessels and lymph nodes: The main portal vein appears patent. Moderate aortoiliac atherosclerotic calcifications. Areas of luminal irregularity and plaque ulcerations are again seen in the infrarenal abdominal aorta No enlarged lymph nodes by size criteria in the abdomen or pelvis. Bowel and peritoneum: No bowel obstruction. No drainable abscess or ascites. Body wall: Fat and omentum containing right inguinal hernia, moderate to large in size. Small fat containing umbilical hernia. Pelvis: Under distended urinary bladder. Uterus is unremarkable on limited CT evaluation. Bones: No aggressive appearing osseous finding. There are degenerative changes. L4 fracture with augmentation again seen. IMPRESSION: Similar post treatment changes and nodular tissue with calcifications at the right hilum with adjacent mild pulmonary parenchymal scarring/fibrosis. No new or enlarging lung nodule. Slightly more prominent left supraclavicular lymph node is seen. Close attention on follow-up is recommended. No other enlarged lymph nodes by size criteria. No active disease below the diaphragm. Other incidental and stable findings above Dictated by: Justin Elliott M.D. on 03/03/2025 at 12:13 Approved by: Justin Elliott M.D. on 03/03/2025 at 12:27
--- NOTE | 2025-03-03 08:23 | DI.CT.S_ITS ---
PROCEDURE: CT SOFT TISSUE NECK W CON INDICATIONS: lung cancer TECHNIQUE: After the administration of intravenous contrast, 3.0 mm axial sections acquired from the sella to the aortic arch. Additional oblique axial 3.0 mm sections acquired through the pharynx. 3 mm thick coronal and sagittal reformats were generated. For radiation dose reduction, the following was used: automated exposure control. COMPARISON: [facility], CT, CT SOFT TISSUE NECK W CON, 12/09/2024, 8:46. [facility], CT, CT SOFT TISSUE NECK W CON, 09/16/2024, 11:16. [facility], CT, CT SOFT TISSUE NECK W CON, 06/24/2024, 11:55. [facility], CT, CT SOFT TISSUE NECK W CON, 04/08/2024, 15:28. FINDINGS: Image quality: Excellent. Lymph nodes: No enlarged lymph nodes seen throughout the neck. Vessels: Visualized vasculature appears patent. Mild atherosclerotic plaque in the origins of the internal carotid arteries. Neck spaces: The oropharynx, nasopharynx, and pharynx demonstrate no mucosal lesions. The vocal cords, false vocal cords, pyriform sinuses, epiglottis, vallecula, and tongue base all appear normal. Extramucosal spaces appear unremarkable. Glands: The parotid and submandibular glands appear normal. Thyroid gland is normal. Miscellaneous: Visualized brain and orbits appear normal. Lung apices appear clear. Superficial soft tissues appear normal. Bones: No suspicious bony lesions. Spine degenerative disc disease and facet arthropathy. Mild mucosal thickening in the maxillary sinuses. mastoids appear unremarkable. IMPRESSION: Stable examination compared to December 09, 2024. No lymphadenopathy based on size criteria. Dictated by: Maame Scott MD, PhD on 03/03/2025 at 12:33 Approved by: Maame Scott MD, PhD on 03/03/2025 at 12:37
== END ==
LOC: CT 08:20
PROVIDERS: PCP Internal Medicine Hematology & Oncology; Referring Provider Internal Medicine Hematology & Oncology; Visit Provider Internal Medicine Hematology & Oncology
DX: C34.90 Malignant neoplasm of unspecified part of unspecified bronchus or lung (principal); J98.4 Other disorders of lung; K40.90 Unilateral inguinal hernia, without obstruction or gangrene, not specified as recurrent; K42.9 Umbilical hernia without obstruction or gangrene; I70.0 Atherosclerosis of aorta; I70.208 Unspecified atherosclerosis of native arteries of extremities, other extremity
CPT/HCPCS: 70491; 71260; 74177; Q9967